=== PATIENT | female | born 1965 | race African-American/Black ===

== ENCOUNTER 2017-10-12 08:00 | Outpatient (CLI) | payer MEDICARE, BC ==
[~2017-10-12] VITALS: Ht 170.2 cm; Wt 67.1 kg
--- NOTE | 2017-10-12 11:07 | Anethesia Preoperative Eval ---
Anesthesia Pre-op PMH/ROS General Date of Evaluation: Oct 12, 2017 Time of Evaluation: 11:05 Anesthesiologist: Leslie Alarcon CRNA Mallampati Score Class I : Soft palate, uvula, fauces, pillars visible Class II: Soft palate, uvula, fauces visible Class III: Soft palate, base of uvula visible Class IV: Only hard plate visible Surgeon: Fifi Diagnosis: Anemia Surgical Procedure: EGD and colonoscopy Allergies: Coded Allergies: No Known Allergies (Unverified , 10/12/17) Past Medical History PMH Narrative: as above PSxH Narrative: AV shunt placement Leslie Alarcon CRNA Oct 12, 2017 11:07
[2017-10-12] MEDS ORDERED: CRESTOR10 M2 ORAL (11:23)
[2017-10-12] MEDS ORDERED: ENALAPRIL MALEA10 MG ORAL (11:23)
[2017-10-12] MEDS ORDERED: NORVASC10 MG ORAL (11:23)
[2017-10-12 11:42] VITALS: BP 149/68
--- NOTE | 2017-10-12 12:22 | General Progress Note ---
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 w/o success this MD tried x 2 in (R) foot and (R) EJ without success patient states she has always had a very difficult time with IV lines advised patient have to choice but to cancel and R/S for another day with plans focused on IV placement ([facility], with vein finder) Objective Last 24 Hour Vital Signs Date Time Temp Pulse Resp B/P (MAP) Pulse Ox O2 Delivery O2 Flow Rate FiO2 10/12/17 11:42 97.2 56 18 149/68 (95) 100 97.2 10/12/17 11:13 Room Air Laboratory Tests 10/12/17 10:45: Urine HCG, Qualitative Negative Height (Feet): 5 Height (Inches): 7.00 Weight (Pounds): 148 Objective See recent H&P for full exam - attached Lacey Calix MD Oct 12, 2017 12:22
== END 2017-10-12 10:00 | disposition home or self-care (01) ==
LOC: LAB 08:00 → GAS 10:31 → EDSTATUS 11:15
DX: N18.6 End stage renal disease (principal); D64.9 Anemia, unspecified; E78.00 Pure hypercholesterolemia, unspecified; I87.2 Venous insufficiency (chronic) (peripheral)
CPT/HCPCS: 81025; 82962